=== PATIENT | female | born 1985 ===

== ENCOUNTER 2016-08-23 11:26 | Emergency (ER) | payer OTHER ==
[2016-08-23 11:27] VITALS: BMI 22.6
[2016-08-23 11:34] VITALS: BP 110/70; PULSE 87; RESP 15; TEMP 98.7; O2SAT 100
[2016-08-23 12:11] LABS: RBC URINE 2 /hpf (0-3); URINE BILIRUBIN NEGATIVE (NEGATIVE); URINE BLOOD 2+ (NEGATIVE); URINE COLOR Yellow (YELLOW); URINE GLUCOSE (UA) NORMAL (Normal); URINE KETONE TRACE mg/dL (NEGATIVE); URINE LEUKOCYTE ESTERASE NEG Leu/uL (Negative); URINE PROTEIN NEGATIVE (NEGATIVE); URINE UROBILINOGEN NORMAL mg/dL (0.2-1.0); WBC URINE 1 /hpf (0-5)
--- NOTE | 2016-08-23 12:46 | C.PDOC ---
History Of Present Illness 31 y/o female presents to ED requesting clarification of her results from hospital. Patient was seen at [facility] and was told she was however her Ultrasound showed no . Patient is confused and came to ED to get clarification on her diagnosis. She reports mild pain, and light spotting. Time Seen by Provider: 08/23/16 12:01 Chief Complaint (Nursing): Female Genitourinary History Per: Patient History/Exam Limitations: no limitations Onset/Duration Of Symptoms: Days Past Medical History Reviewed: Historical Data, Nursing Documentation, Vital Signs Vital Signs: Last Vital Signs Temp 98.7 F 08/23/16 11:33 Pulse 87 08/23/16 11:33 Resp 15 08/23/16 11:33 BP 110/70 08/23/16 11:33 Pulse Ox 100 08/23/16 18:54 - Medical History PMH: Asthma Family History: States: No Known Family Hx - Social History Hx Alcohol Use: No Hx Substance Use: No - Immunization History Hx Tetanus Toxoid Vaccination: No Hx Influenza Vaccination: No Hx Pneumococcal Vaccination: No Review Of Systems Constitutional: Negative for: Fever, Chills Gastrointestinal: Positive for: Abdominal Pain (mild). Negative for: Nausea, Vomiting, Diarrhea Genitourinary: Positive for: Vaginal Bleeding. Negative for: Dysuria, Frequency Neurological: Negative for: Weakness, Headache, Dizziness Physical Exam - Physical Exam Appears: Non-toxic, No Acute Distress Skin: Normal Color, Warm Head: Atraumatic, Normacephalic Eye(s): bilateral: Normal Inspection, EOMI Oral Mucosa: Moist Neck: Normal ROM Chest: Symmetrical Cardiovascular: Rhythm Regular Respiratory: Normal Breath Sounds, No Rales, No Rhonchi, No Wheezing Gastrointestinal/Abdominal: Soft, No Tenderness, No Guarding, No Rebound Neurological/Psych: Oriented x3, Normal Speech Gait: Steady ED Course And Treatment O2 Sat by Pulse Oximetry: 100 (Room air ) Pulse Ox Interpretation: Normal Medical Decision Making Medical Decision Making: Impression: Patient needs clarification of previous diagnosis Plan: Prior record reviewed patient was found to be . BHCG was 1571. US shows bilateral ovarian cyst and no IUP or gestational sac. I discussed and explained at length the results and what ovarian cysts were. I explain she needs to follow up for repeat BHCG and US to confirm . Progress: Patient verbalized understanding and was stable for discharge. Disposition Counseled Patient/Family Regarding: Diagnosis, Need For Followup - Disposition Referrals: [facility] [Outside] Disposition: HOME/ ROUTINE Disposition Time: 12:45 Condition: GOOD Additional Instructions: Mrs. Doyle, thank you for letting us take care of you today. Your provider was Carolina HENDRICKS and Dr Pelaez. You were seen today and all results were explained to you from prior visit and received copies of labs. Thank you for allowing the [facility] team to be part of your care today. Please Follow up in 24 hours for repeat quantitative B-Hcg and repeat transvaginal ultrasound in one week Please follow up with PMD and CUSTOMER SERVICE CLERK within the next few days. 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 - Scribe Statement The provider has reviewed the documentation as recorded by the Ruiibchelsie Duncan All medical record entries made by the Alexander were at my direction and personally dictated by me. I have reviewed the chart and agree that the record accurately reflects my personal performance of the history, physical exam, medical decision making, and the department course for this patient. I have also personally directed, reviewed, and agree with the discharge instructions and disposition.
== END 2016-08-23 12:47 | disposition home or self-care (01) ==
LOC: C.ER 11:26
DX: O20.0 Threatened abortion (principal); Z3A.00 Weeks of gestation of pregnancy not specified

== ENCOUNTER 2016-08-24 11:29 | Emergency (ER) | payer OTHER ==
[2016-08-24 11:41] VITALS: BMI 24.7
[2016-08-24 11:42] VITALS: RESP 18
--- NOTE | 2016-08-24 14:38 | US ---
HISTORY: pelvic pain/vaginal bleeding. LMP 08/10/2016 Beta HCG results: 2013. COMPARISON: None available. TECHNIQUE: Transvaginal only. Real -time technique with 2D, duplex and color Doppler FINDINGS: UTERUS: Measures 3.8 x 89.0 cm. Normal in size and appearance. No fibroid or other mass lesion seen. ENDOMETRIUM: Measures 9.1 mm in diameter. No ultrasound findings to suggest gestational sac, fluid, debris, mass or polyp or other pathologic process within the endometrium. CERVIX: Closed cervix 3.3 cm in length. RIGHT OVARY: Measures 3 x 3.9 cm. Complex cyst with debris and septa I 1.9 x 2.6 cm. Normal flow. LEFT OVARY: Measures 4.1 x 5.8 cm. No solid mass. Normal flow. Simple cyst 3.5 x 4.2 cm. FREE FLUID: Incompletely visualized fluid in the cul-de-sac. OTHER FINDINGS: None. IMPRESSION: No evidence of intrauterine gestation. Complex cyst right adnexa. Ectopic gestation is not excluded. Simple cyst left adnexa. Fluid in the cul-de-sac.
--- NOTE | 2016-08-24 15:40 | C.PDOC ---
History Of Present Illness 31-year-old female, presents to the emergency department for repeat Beta count. Patient seen in [place] ED two days ago, and had an ultrasound that did not show a live IUP. Patient notes that she wants to have a repeat count. Denies nausea/vomiting, fevers, chills, chest pain or shortness of breath or any other associated symptoms. No other complaints at this time. Chief Complaint (Nursing): Medical Clearance History Per: Patient History/Exam Limitations: no limitations Onset/Duration Of Symptoms: Days Current Symptoms Are (Timing): Still Present Past Medical History Reviewed: Historical Data, Nursing Documentation, Vital Signs Vital Signs: Last Vital Signs Temp 98 F 08/24/16 15:44 Pulse 77 08/24/16 15:44 Resp 18 08/24/16 15:44 BP 106/71 08/24/16 15:44 Pulse Ox 100 08/24/16 18:53 - Medical History PMH: Asthma Denies: Chronic Kidney Disease Family History: States: No Known Family Hx - Social History Hx Alcohol Use: No Hx Substance Use: No - Immunization History Hx Tetanus Toxoid Vaccination: No Hx Influenza Vaccination: No Hx Pneumococcal Vaccination: No Review Of Systems Except As Marked, All Systems Reviewed And Found Negative. Constitutional: Negative for: Fever, Chills Cardiovascular: Negative for: Chest Pain Gastrointestinal: Negative for: Vomiting Skin: Negative for: Rash Physical Exam - Physical Exam Appears: Non-toxic, No Acute Distress Skin: Warm, Dry, No Rash Head: Atraumatic, Normacephalic Eye(s): bilateral: Normal Inspection Nose: Normal Oral Mucosa: Moist Lips: Normal Appearing Neck: Normal ROM Respiratory: No Accessory Muscle Use Gastrointestinal/Abdominal: Soft, No Tenderness Extremity: Normal ROM Neurological/Psych: Oriented x3 ED Course And Treatment O2 Sat by Pulse Oximetry: 100 - CT Scan/US US TRANSVAG Other Rad Studies (CT/US): Read By Radiologist, Radiology Report Reviewed CT/US Interpretation: Accession No. : [id number]. Patient Name / ID : ADRIAN Bhatt / [id number]. Exam Date : 08/24/2016 13:17:54 ( Approved ). Study Comment : Sex / Age : F / 31Y. Creator : Azam Gutierrez MD. Dictator : Azam Gutierrez MD. Electric Meter Tester : [employer] Plant Maintenance Consultant : Azam Gutierrez MD. Approver2 : Report Date : 08/24/2016 14:36:56. My Comment : . HISTORY: pelvic pain/vaginal bleeding. LMP 08/10/2016. Beta HCG results: 2013.. COMPARISON: None available. TECHNIQUE: Transvaginal only. Real - time technique with 2D, duplex and color Doppler. FINDINGS: UTERUS: Measures 3.8 x 89.0 cm. Normal in size and appearance. No fibroid or other mass lesion seen. ENDOMETRIUM: Measures 9.1 mm in diameter. No ultrasound findings to suggest gestational sac, fluid, debris, mass or polyp or other pathologic process within the endometrium. CERVIX: Closed cervix 3.3 cm in length. RIGHT OVARY: Measures 3 x 3.9 cm. Complex cyst with debris and septa I 1.9 x 2.6 cm. Normal flow. LEFT OVARY: Measures 4.1 x 5.8 cm. No solid mass. Normal flow. Simple cyst 3.5 x 4.2 cm. FREE FLUID: Incompletely visualized fluid in the cul-de-sac. OTHER FINDINGS: None. IMPRESSION: No evidence of intrauterine gestation. Complex cyst right adnexa. Ectopic gestation is not excluded. Simple cyst left adnexa. Fluid in the cul-de-sac. Medical Decision Making Medical Decision Making: Prior Visits Notes anbd records from previous visits were reviewed. patient seen in [place] ED on 08/22; Patients US was negative for IUP and her HCG was 1571. Patient seen in ED yesterday, and she was told to f/u for repeat count and US in two days. Patient evaluated at bedside by Dr Rascon, states to have patient return for repeat beta count and US in two days, because ectopic cannot be ruled out at this time. Disposition - Disposition Referrals: Miguel Ángel Brothers [Staff Provider] - Disposition: HOME/ ROUTINE Disposition Time: 15:38 Condition: STABLE Additional Instructions: Follow up with OBGYN within 2-3 days. Return to ED in 2 days for Beta HCG and pelvic US. return to ED immediately if feel worse. Instructions: First Trimester Vaginal Bleed (ED) - Clinical Impression Clinical Impression: Vaginal bleeding in - Scribe Statement The provider has reviewed the documentation as recorded by the Ruiibchelsie Vaca All medical record entries made by the Ruiibchelsie were at my direction and personally dictated by me. I have reviewed the chart and agree that the record accurately reflects my personal performance of the history, physical exam, medical decision making, and the department course for this patient. I have also personally directed, reviewed, and agree with the discharge instructions and disposition.
[2016-08-24 15:46] VITALS: BP 106/71; PULSE 77; TEMP 98
--- NOTE | 2016-08-24 16:09 | CP.PCM.CON ---
History of Present Illness - History of Present Illness History of Present Illness: 31 yr lmp 08/10/16 came with c/o abdominal pain in the night, no pain now, some brownish discharge. DESIRED . pt was trying for it. pt has a h/o ectopic preg 2 yrs ago. pt went to [facility] on 08/22 and found out that she was preg. no pain now. did not took any pain meds. obhx 1 x ectopic preg, 1 x pmh denies med pnv all pcn psh left ectopic laprscopy soch smoking = [facility] [place] 1541 08/22 [facility] [place] [address]/[place]. sono no iup. right complex cyst left simple cyst sse brownish disc, no blood, cervix closed, ut anteverte, no pal masses. abd soft,non tender Past Patient History - Infectious Disease Hx of Infectious Diseases: None - Past Social History Smoking Status: Light Smoker < 10 Cigarettes Daily - CARDIAC Hx Cardiac Disorders: No - PULMONARY Hx Asthma: Yes - NEUROLOGICAL Hx Neurological Disorder: No - HEENT Hx HEENT Problems: No - RENAL Hx Chronic Kidney Disease: No - ENDOCRINE/METABOLIC Hx Endocrine Disorders: No - HEMATOLOGICAL/ONCOLOGICAL Hx Blood Disorders: No - INTEGUMENTARY Hx Dermatological Problems: No - MUSCULOSKELETAL/RHEUMATOLOGICAL Hx Musculoskeletal Disorders: No - GASTROINTESTINAL Hx Gastrointestinal Disorders: No - GENITOURINARY/GYNECOLOGICAL Hx Genitourinary Disorders: Yes Other/Comment: ECTOPIC - right side - PSYCHIATRIC Hx Substance Use: No - SURGICAL HISTORY Hx Surgeries: Yes Other/Comment: R/T ECTOPIC - ANESTHESIA Hx Anesthesia: No Hx Anesthesia Reactions: No Meds Allergies/Adverse Reactions: Allergies Allergy/AdvReac Type Severity Reaction Status Date / Time Penicillins Allergy RASH Verified 08/24/16 11:47 Physical Exam - Constitutional Appears: Well - Exam External exam: NORMAL EXTERNAL EXAM Speculum exam: NORMAL SPECULUM EXAM (small brownish disc) Bimanual exam: NORMAL BIMANUAL EXAM Results - Vital Signs Recent Vital Signs: Last Vital Signs Temp 98 F 08/24/16 15:44 Pulse 77 08/24/16 15:44 Resp 18 08/24/16 15:44 BP 106/71 08/24/16 15:44 Pulse Ox 99 08/24/16 15:44 - Labs Labs: Laboratory Results - last 24 hr 08/24/16 11:59 Beta HCG, Quant Assessment & Plan - Assessment and Plan (Free Text) Assessment: 31 yr at 5weeks r/o ectopic preg r/o early preg. desired preg. stable Plan: plan extensive discussion regarding expectant/medical/surgical management discussed. as it is very desired and pateint is stablee with no symtoms descion was made to repet bh cg and sonogram in 2days. if acute pain or vb come to er.ectopic precautions given no sex pelvic rest. pt understand that therr is a possibilty of ecopic and early preg caannot be ruled out at this time. she will follow up on friday and depending upon the findings decision will be made. all questions answered in detail. f/u on friday - Date & Time Date: 08/24/16 Time: 16:20
[2016-08-24 17:42] VITALS: O2SAT 100
== END 2016-08-24 15:46 | disposition home or self-care (01) ==
LOC: C.ER 11:29
DX: O46.91 Antepartum hemorrhage, unspecified, first trimester (principal); Z3A.01 Less than 8 weeks gestation of pregnancy

== ENCOUNTER 2016-08-26 12:03 | Emergency (ER) | payer OTHER ==
[2016-08-26 12:05] VITALS: BMI 24.7
--- NOTE | 2016-08-26 12:32 | C.PDOC ---
History Of Present Illness 31 y/o female. , (, hx ectopic a few yrs ago) seen in [place] ED on 08/22 for lower abdominal pain; right side more than left; pt had blood work done and transvaginal ultrasound done with no iup seen, beta-hcg of 1571. pt had vaginal bleeding after us which has since resolved. Pt told to return to ER for repeat labs and us. pt seen on 08/24 with beta-hcg now 2013, no iup seen on sonogram, complex right cyst noted. pt denies any vaginal bleeding, no abdominal pain since yesterday. Time Seen by Provider: 08/26/16 12:16 Chief Complaint (Nursing): Medical Clearance History Per: Patient History/Exam Limitations: no limitations Severity: Mild Pain Scale Rating Of: 0 Reports Recently: Seen In ED Recent travel outside of the [place]: No Past Medical History Reviewed: Historical Data, Nursing Documentation, Vital Signs Vital Signs: Last Vital Signs Temp 97.6 F 08/26/16 14:41 Pulse 79 08/26/16 16:34 Resp 18 08/26/16 16:34 BP 119/72 08/26/16 16:34 Pulse Ox 98 08/26/16 16:34 - Medical History PMH: Asthma Family History: States: Unknown Family Hx - Social History Hx Alcohol Use: No Hx Substance Use: No - Immunization History Hx Tetanus Toxoid Vaccination: Yes Hx Influenza Vaccination: No Hx Pneumococcal Vaccination: No Review Of Systems Constitutional: Negative for: Fever, Chills Gastrointestinal: Negative for: Vomiting, Abdominal Pain Genitourinary: Negative for: Dysuria, Vaginal Bleeding, Pelvic Pain Physical Exam - Physical Exam Appears: Non-toxic, No Acute Distress Skin: Warm, Dry, No Rash Head: Atraumatic, Normacephalic Chest: Symmetrical, No Tenderness Cardiovascular: Rhythm Regular, No Murmur Respiratory: Normal Breath Sounds, No Rales, No Rhonchi, No Wheezing Gastrointestinal/Abdominal: Soft, No Tenderness, No Guarding, No Rebound Extremity: No Tenderness, No Pedal Edema Neurological/Psych: Oriented x3, Normal Speech, Normal Cognition ED Course And Treatment - Laboratory Results Result Diagrams: 08/26/16 14:25 08/26/16 14:25 O2 Sat by Pulse Oximetry: 100 (room air) Pulse Ox Interpretation: Normal Progress Note: Plan: US transvaginal, repeat beta-HCG Disposition Counseled Patient/Family Regarding: Diagnosis, Need For Followup - Disposition Referrals: Miguel Ángel Brothers [Staff Provider] - Disposition: HOME/ ROUTINE Disposition Time: 16:25 Condition: STABLE Additional Instructions: Follow up with Dr Hauser on ; call tomorrow for an appointment, You will also need to be seen either by Dr Hauser or in ED on Sun for further blood work to heck the bhcg blood level. Return immediately to the ER for any abdominal pain (you many have some cramps), heavy vaginal bleeding, lightheadedness, fainting, or any other concerning symptoms. 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 - Scribe Statement The provider has reviewed the documentation as recorded by the Alexander Coelho All medical record entries made by the Alexander were at my direction and personally dictated by me. I have reviewed the chart and agree that the record accurately reflects my personal performance of the history, physical exam, medical decision making, and the department course for this patient. I have also personally directed, reviewed, and agree with the discharge instructions and disposition.
--- NOTE | 2016-08-26 13:42 | US ---
HISTORY: Rising beta HCG. Beta HCG results: Unknown COMPARISON: 08/24/2016 pelvic ultrasound TECHNIQUE: Transvaginal only. Real -time technique with 2D, duplex and color Doppler FINDINGS: UTERUS: Measures 4.1 x 9.7 cm. Normal in size and appearance. No fibroid or other mass lesion seen. ENDOMETRIUM: Measures 9.1 mm in diameter. No ultrasound findings to suggest gestational sac, fluid, debris, mass or polyp or other pathologic process within the endometrium. CERVIX: No cervical abnormality identified. RIGHT OVARY: Measures 3.4 x 4.3 cm. New complex mass in the right ovary 1.9 x 2.9 cm. This finding is suspicious for a ectopic gestation. This is separate and distinct from Complex cyst/ mass right ovary 2 x 2.6 cm. This is virtually identical compared to the prior study. Normal flow. LEFT OVARY: Measures 3.3 x 4.7 cm. No solid mass. Simple cyst 3.7 cm. See FREE FLUID: See Trace free fluid identified in the pelvis/cul de sac. OTHER FINDINGS: None. IMPRESSION: Solid mass right adnexa a with peripheral hypervascularity consistent with ectopic gestation. Additional findings unchanged compared to the prior study. No evidence of intrauterine gestation. Communication of critical results: I discussed the findings with RUTHIE Vega at the conclusion of this interpretation. Study completed at 13:18. Verbal results provided at 13:37.
[2016-08-26] MEDS ORDERED: Methotrexate 50 mg/2 ml Inj IM ONE ×3 (14:10→15:15)
[2016-08-26 14:35] LABS: BASO % 0.8 % (0.0-2.0); EOS % 0.6 % (0.0-4.0); LYMPH # 0.8 K/uL (1.0-4.3); MONO # 0.4 K/uL (0.0-0.8); WHITE BLOOD COUNT 4.1 K/uL (4.8-10.8)
[2016-08-26 14:41] LABS: CHLORIDE 102 mmol/L (98-107); POTASSIUM 4.5 mmol/L (3.6-5.2); SODIUM 137 mmol/L (132-148)
[2016-08-26 14:42] VITALS: RESP 18; TEMP 97.6
[2016-08-26 14:43] LABS: BILIRUBIN,TOTAL 0.4 mg/dL (0.2-1.3); GFR AFRICAN-AMERICAN > 60
[2016-08-26 14:44] LABS: ALB/GLOB RATIO 1.4 (1.0-2.1); ALKALINE PHOSPHATASE 48 U/L (38-126); ALT/SGPT 22 U/L (9-52); AST/SGOT 16 U/L (14-36); BLOOD UREA NITROGEN 8 mg/dL (7-17); CARBON DIOXIDE 27 mmol/L (22-30); GLUCOSE,RANDOM 92 mg/dL (65-105); TOTAL PROTEIN 7.4 g/dL (6.3-8.3)
[2016-08-26 14:50] LABS: LYMPH % 19.9 % (20.0-40.0); MEAN CELL VOLUME 95.3 fL (81.0-99.0); MEAN CORPUSCULAR HEMOGLOBIN 32.3 pg (27.0-31.0); MEAN CORPUSCULAR HGB CONC 33.9 g/dL (33.0-37.0); MEAN PLATELET VOLUME 9.6 fL (7.2-11.7); MONO % 10.2 % (0.0-10.0); RED CELL DISTRIBUTION WIDTH 12.2 % (11.5-14.5)
[2016-08-26 16:35] VITALS: BP 119/72; PULSE 79
--- NOTE | 2016-08-26 17:30 | CP.PCM.CON ---
History of Present Illness - History of Present Illness History of Present Illness: 31 y/o female with hx of ectopic , presents to ed for follow up cg and ultrasound.Patient states that she has no pain today nor has beleding. [facility] [place] 08/24/20162013 [facility] [place] today [address]1 ultrasound today shows right adnexal ectopic Review of Systems - Review of Systems All systems: reviewed and no additional remarkable complaints except - Gastrointestinal Gastrointestinal: absent: Abdominal Pain, Nausea, Vomiting - Reproductive: Female Reproductive:Female: absent: Vaginal Discharge, Vaginal Dryness, Vaginal Odor Past Patient History - Infectious Disease Hx of Infectious Diseases: None - Past Social History Smoking Status: Light Smoker < 10 Cigarettes Daily - CARDIAC Hx Cardiac Disorders: No - PULMONARY Hx Asthma: Yes - NEUROLOGICAL Hx Neurological Disorder: No - HEENT Hx HEENT Problems: No - RENAL Hx Chronic Kidney Disease: No - ENDOCRINE/METABOLIC Hx Endocrine Disorders: No - HEMATOLOGICAL/ONCOLOGICAL Hx Blood Disorders: No - INTEGUMENTARY Hx Dermatological Problems: No - MUSCULOSKELETAL/RHEUMATOLOGICAL Hx Musculoskeletal Disorders: No - GASTROINTESTINAL Hx Gastrointestinal Disorders: No - GENITOURINARY/GYNECOLOGICAL Hx Genitourinary Disorders: Yes Other/Comment: ECTOPIC - right side - PSYCHIATRIC Hx Substance Use: No - SURGICAL HISTORY Hx Surgeries: Yes Other/Comment: R/T ECTOPIC - ANESTHESIA Hx Anesthesia: No Hx Anesthesia Reactions: No Meds Allergies/Adverse Reactions: Allergies Allergy/AdvReac Type Severity Reaction Status Date / Time Penicillins Allergy RASH Verified 08/26/16 12:10 Physical Exam - Constitutional Appears: Well, No Acute Distress - Respiratory Exam Respiratory Exam: Clear to Auscultation Bilateral, NORMAL BREATHING PATTERN - Cardiovascular Exam Cardiovascular Exam: REGULAR RHYTHM - GI/Abdominal Exam GI & Abdominal Exam: Normal Bowel Sounds, Soft. absent: Guarding, Rebound, Rigid, Tenderness - Extremities Exam Extremities exam: Negative for: calf tenderness - Back Exam Back exam: absent: CVA tenderness (L), CVA tenderness (R) - Neurological Exam Neurological exam: Alert, Oriented x3 - Psychiatric Exam Psychiatric exam: Normal Affect, Normal Mood - Skin Skin Exam: Normal Color Results - Vital Signs Recent Vital Signs: Last Vital Signs Temp 97.6 F 08/26/16 14:41 Pulse 79 08/26/16 16:34 Resp 18 08/26/16 16:34 BP 119/72 08/26/16 16:34 Pulse Ox 98 08/26/16 16:34 - Labs Result Diagrams: 08/26/16 14:25 08/26/16 14:25 Labs: Laboratory Results - last 24 hr 08/26/16 08/26/16 08/26/16 13:08 14:25 14:25 WBC 4.1 L RBC 3.77 L Hgb 12.2 Hct 36.0 MCV 95.3 MCH 32.3 H MCHC 33.9 RDW 12.2 Plt Count 210 MPV 9.6 Neut % (Auto) 68.5 Lymph % (Auto) 19.9 L [place] % (Auto) 10.2 H Eos % (Auto) 0.6 Baso % (Auto) 0.8 Neut # 2.8 Lymph # 0.8 L [place] # 0.4 Eos # 0.0 Baso # 0.0 Sodium 137 Potassium 4.5 Chloride 102 Carbon Dioxide 27 Anion Gap 13 BUN 8 Creatinine 0.6 L Est GFR ( Amer) > 60 Est GFR (Non-Af Amer) > 60 Random Glucose 92 Calcium 9.0 Total Bilirubin 0.4 AST 16 ALT 22 Alkaline Phosphatase 48 Total Protein 7.4 Albumin 4.3 Globulin 3.1 Albumin/Globulin Ratio 1.4 Beta HCG, Quant 3661.90 Assessment & Plan (1) Ectopic without intrauterine Assessment and Plan: Patient with right adnexal ectopic .hx of ectopic in past discussed management options with patient-medical versus surgical risks and benefits of each discussed.patient chooses to have methotrexate give methotrexatae 50mg/m2 of bsa. Avoid folic acid.pelvic rest.patient given rupture precautions.Repeat bhcg on and friday follow up with dr kruger in am Status: Acute
[2016-08-28 12:27] VITALS: O2SAT 100
== END 2016-08-26 16:35 | disposition home or self-care (01) ==
LOC: C.ER 12:03
DX: O00.90 Unspecified ectopic pregnancy without intrauterine pregnancy (principal)
CPT/HCPCS: 36415; 76830; 80053; 84702; 85025; 96372; 99283; J9250

== ENCOUNTER 2016-09-07 23:23 | Observation (INO) | payer OTHER ==
[2016-09-07 23:23] VITALS: BMI 24.7
--- NOTE | 2016-09-08 00:08 | C.PDOC ---
History Of Present Illness <Thierry Walker - Last Filed: 09/08/16 00:34> <Noe Munroe - Last Filed: 09/08/16 02:50> 31 y/o F c PMHx ectopic years ago, diagnosed with ectopic approximately 12 days ago s/p methotrexate administration p/w lower pelvic pain x weeks. She states the pain she is presenting for today is the same pain she had when diagnosed with the ectopic weeks ago. She has been taking acetaminophen for the pain but reports that it is severe and she "need to figure out what's going on." She also reports that vaginal bleeding began today while she was in the ER. She denies fever, vomiting, diarrhea, dysuria. (Thierry Walker) <DeniseThierry Cox - Last Filed: 09/08/16 00:34> <Noe Munroe - Last Filed: 09/08/16 02:50> Time Seen by Provider: 09/07/16 23:55 Chief Complaint (Nursing): Abdominal Pain Past Medical History - Medical History PMH: Asthma Denies: Chronic Kidney Disease Family History: States: Unknown Family Hx - Social History Hx Alcohol Use: No Hx Substance Use: No - Immunization History Hx Tetanus Toxoid Vaccination: Yes Hx Influenza Vaccination: No Hx Pneumococcal Vaccination: No <DeniseThierry - Last Filed: 09/08/16 00:34> Review Of Systems Except As Marked, All Systems Reviewed And Found Negative. Constitutional: Negative for: Fever Respiratory: Negative for: Cough <DensieThierry Cox - Last Filed: 09/08/16 00:34> Physical Exam <DeniseThierry Cox - Last Filed: 09/08/16 00:34> <Noe Munroe - Last Filed: 09/08/16 02:50> - Physical Exam Additional Physical Exam Comments: Constitutional: Crying Head: Normocephalic. Atraumatic. Eyes: PERRL. ENT: Moist mucous membranes. Neck: Supple. Cardiovascular: Regular rate. Radial pulse 2+ bilaterally. Chest: No tenderness. Respiratory: Clear to auscultation bilaterally. GI: Lower abdominal tenderness. Back: No CVA tenderness. Musculoskeletal: No tenderness or swelling of extremities. Skin: No rash. Neurologic: Alert, no focal deficit. (Thierry Walker) ED Course And Treatment - Laboratory Results Result Diagrams: 09/08/16 00:30 09/08/16 00:01 O2 Sat by Pulse Oximetry: 99 <Thierry Walker - Last Filed: 09/08/16 00:34> - Laboratory Results Result Diagrams: 09/08/16 00:30 09/08/16 00:01 <Noe Munroe - Last Filed: 09/08/16 02:50> Medical Decision Making <Thierry Walker - Last Filed: 09/08/16 00:34> <Noe Munroe - Last Filed: 09/08/16 02:50> Medical Decision Making: Normal vital signs. Will repeat beta quant and check labs. Morphine for pain. Repeat transvaginal US. Dr. Brothers agrees with plan and will consult with him after results return. CBC normal, chemistry normal. Pending Beta quant, urine, and US. Will sign out to ER night team at end of shift. (Thierry Walker) Disposition <Thierry Walker - Last Filed: 09/08/16 00:34> - Disposition Disposition Time: 02:50 <Noe Munroe - Last Filed: 09/08/16 02:50> - Disposition Disposition: HOSPITALIZED Condition: GOOD - Clinical Impression Clinical Impression: Ectopic without intrauterine Addendum <Thierry Walker - Last Filed: 09/08/16 00:34> <Noe Munroe - Last Filed: 09/08/16 02:50> Addendum: Hx and Pe reviewed Pending us and quant Quant down from 4628 to 1919 US enlarging rt adnexal mass min free fluid Pt return for US with increased pain and diaphoresis, VS unchanged Abd with mod diffuse tenderness Case discussed with dr Brothers, who evaluated pt in the ED and will take her to the OR Plan to OR (Noe Munroe)
[2016-09-08 00:23] LABS: CHLORIDE 102 mmol/L (98-107); POTASSIUM 3.7 mmol/L (3.6-5.2); SODIUM 135 mmol/L (132-148)
[2016-09-08 00:25] LABS: ALB/GLOB RATIO 1.9 (1.0-2.1); AST/SGOT 22 U/L (14-36); BILIRUBIN,TOTAL 0.4 mg/dL (0.2-1.3); CARBON DIOXIDE 21 mmol/L (22-30); GFR AFRICAN-AMERICAN > 60; TOTAL PROTEIN 7.3 g/dL (6.3-8.3)
[2016-09-08 00:26] LABS: ALKALINE PHOSPHATASE 45 U/L (38-126); ALT/SGPT 21 U/L (9-52); BLOOD UREA NITROGEN 12 mg/dL (7-17); CALCIUM 8.7 mg/dl (8.6-10.4); GLUCOSE,RANDOM 126 mg/dL (65-105)
[2016-09-08 00:26] LABS: BASO % 0.6 % (0.0-2.0); EOS # 0.2 K/uL (0.0-0.7); EOS % 2.6 % (0.0-4.0); HEMATOCRIT 33.9 % (34.0-47.0); LYMPH # 1.5 K/uL (1.0-4.3); LYMPH % 25.5 % (20.0-40.0); MEAN CELL VOLUME 96.7 fL (81.0-99.0); MEAN CORPUSCULAR HEMOGLOBIN 32.2 pg (27.0-31.0); MEAN CORPUSCULAR HGB CONC 33.3 g/dL (33.0-37.0); MEAN PLATELET VOLUME 9.5 fL (7.2-11.7); MONO # 0.4 K/uL (0.0-0.8); MONO % 6.5 % (0.0-10.0); NRBC % 0.2 % (0.0-2.0); RED CELL DISTRIBUTION WIDTH 12.5 % (11.5-14.5); WHITE BLOOD COUNT 5.8 K/uL (4.8-10.8)
[2016-09-08] MEDS ORDERED: Morphine 4 MG/ML VIAL ONE ×3 (00:32→07:28)
--- NOTE | 2016-09-08 03:03 | CP.PCM.HP ---
History of Present Illness - History of Present Illness History of Present Illness: 31yo female who is s/p methotrexate injection for a suspected ectopic gestation returns to the ER today complaining of intermittent but worsoning pain which has been developing since the injection of methotrexate was given. She had followed up with beta hcg levels which went up on the 4th day to over 4000 and is currently trended down to 1900. She reports the pain become more intense after a transvaginal sonogram today. Abdominal exams reveals rebound tenderness. Management options were d/w the patient including diagnostic laparascopy with possible salpingectomy in the event of tubal involvement were discussed. After having her questions answered, Pt elects to proceed with surgical management. The procedure as well as the risks and benefits including injury to vital organs and infertility were discussed. Pt had a previous ectopic where one of her tubes was removed. Consents for procedure were obtained. This is an Emergency procedure. Pt ate at 11 pm yesterday. Present on Admission - Present on Admission Any Indicators Present on Admission: No Review of Systems - Gastrointestinal Gastrointestinal: Abdominal Pain - Reproductive: Female Reproductive:Female: Currently Menstual, Light Menses - Menstruation Menstruation: Currently Menstual, Light Menses, Dysmenorrhea Past Patient History - Infectious Disease Hx of Infectious Diseases: None - Past Social History Smoking Status: Light Smoker < 10 Cigarettes Daily - CARDIAC Hx Cardiac Disorders: No - PULMONARY Hx Asthma: Yes - NEUROLOGICAL Hx Neurological Disorder: No - HEENT Hx HEENT Problems: No - RENAL Hx Chronic Kidney Disease: No - ENDOCRINE/METABOLIC Hx Endocrine Disorders: No - HEMATOLOGICAL/ONCOLOGICAL Hx Blood Disorders: No - INTEGUMENTARY Hx Dermatological Problems: No - MUSCULOSKELETAL/RHEUMATOLOGICAL Hx Musculoskeletal Disorders: No - GASTROINTESTINAL Hx Gastrointestinal Disorders: No - GENITOURINARY/GYNECOLOGICAL Hx Genitourinary Disorders: Yes Other/Comment: ECTOPIC - right side - PSYCHIATRIC Hx Substance Use: No - SURGICAL HISTORY Hx Surgeries: Yes Other/Comment: R/T ECTOPIC - ANESTHESIA Hx Anesthesia: No Hx Anesthesia Reactions: No Meds Allergies/Adverse Reactions: Allergies Allergy/AdvReac Type Severity Reaction Status Date / Time Penicillins Allergy RASH Verified 08/26/16 12:10 Physical Exam - Constitutional Appears: Non-toxic - Respiratory Exam Respiratory Exam: Clear to Auscultation Bilateral, NORMAL BREATHING PATTERN - Cardiovascular Exam Cardiovascular Exam: REGULAR RHYTHM, RRR - GI/Abdominal Exam GI & Abdominal Exam: Guarding, Normal Bowel Sounds, Rebound - Exam Bimanual exam: Adenexal Mass, Cervical Motion Tendernes - Neurological Exam Neurological exam: Oriented x3 Results - Vital Signs Recent Vital Signs: Last Vital Signs Temp 98.3 F 09/07/16 23:34 Pulse 78 09/08/16 02:42 Resp 20 09/08/16 02:42 BP 101/63 09/08/16 02:42 Pulse Ox 100 09/08/16 02:42 - Labs Result Diagrams: 09/08/16 00:30 09/08/16 00:01 Labs: Laboratory Results - last 24 hr 09/08/16 09/08/16 09/08/16 00:01 00:30 01:44 WBC 5.8 RBC 3.50 L Hgb 11.3 Hct 33.9 L MCV 96.7 MCH 32.2 H MCHC 33.3 RDW 12.5 Plt Count 236 MPV 9.5 Neut % (Auto) 64.8 Lymph % (Auto) 25.5 [place] % (Auto) 6.5 Eos % (Auto) 2.6 Baso % (Auto) 0.6 Neut # 3.7 Lymph # 1.5 [place] # 0.4 Eos # 0.2 Baso # 0.0 Sodium 135 Potassium 3.7 Chloride 102 Carbon Dioxide 21 L Anion Gap 16 BUN 12 Creatinine 0.6 L Est GFR ( Amer) > 60 Est GFR (Non-Af Amer) > 60 POC Glucose (mg/dL) 122 H Random Glucose 126 H Calcium 8.7 Total Bilirubin 0.4 AST 22 ALT 21 Alkaline Phosphatase 45 Total Protein 7.3 Albumin 4.8 Globulin 2.6 Albumin/Globulin Ratio 1.9 Beta HCG, Quant 1919.10 Assessment & Plan (1) Abdominal pain Status: Acute (2) Ectopic without intrauterine Status: Acute - Assessment and Plan (Free Text) 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 - Date & Time Date: 09/08/16 Time: 03:07
[2016-09-08 03:14] LABS: RBC URINE 3540 /hpf (0-3); URINE BILIRUBIN NEGATIVE (NEGATIVE); URINE BLOOD 3+ (NEGATIVE); URINE COLOR Amber (YELLOW); URINE GLUCOSE (UA) NORMAL (Normal); URINE KETONE TRACE mg/dL (NEGATIVE); URINE LEUKOCYTE ESTERASE NEG Leu/uL (Negative); URINE PROTEIN 2+ mg/dL (NEGATIVE); URINE UROBILINOGEN NORMAL mg/dL (0.2-1.0)
[2016-09-08] MEDS ORDERED: Albuterol HFA 90 mcg/actuation (8 g) ONE (05:42)
[2016-09-08] MEDS ORDERED: Rocuronium 10 mg/ml (5 ml) ONE (05:48)
[2016-09-08] MEDS ORDERED: Propofol 10 mg/ml Inj (20 ML) ONE (05:48)
[2016-09-08] MEDS ORDERED: Succinylcholine Chloride 20 mg/ml Syr (5 ml) IV ONE (05:48)
[2016-09-08] MEDS ORDERED: Midazolam 2 MG/2 ML VIAL ONE (05:48)
[2016-09-08] MEDS ORDERED: Sodium Chloride 0.9% 1,000 ML IV ONE (06:05)
[2016-09-08] MEDS ORDERED: Bupivacaine HCl 0.5% PF (10 ml) Inj ONE (06:37)
[2016-09-08] MEDS ORDERED: Lactated Ringer's 1,000 ML IV ONE ×2 (07:00→09:00)
[2016-09-08] MEDS ORDERED: Neostigmine Methylsulfate 3mg/3ml Syringe IV ONE (07:15)
[2016-09-08] MEDS: HYDROmorphone 0.5 mg/0.5 ml ISec IVP PRN ×3 (07:50→08:20)
--- NOTE | 2016-09-08 07:53 | PCM.SURG1 ---
Surgeon's Initial Post Op Note - Surgeon's Notes Surgeon: Dr Brothers Behavioral Health Technician: Dr Ramos Type of Anesthesia: General Endo Anesthesia Administered By: Dr Rei Leary Pre-Operative Diagnosis: Acute Abdominal Pain due to ruptured Ectopic gestation Operative Findings: Normal sized uterus with ruptured Right isthmal ectopic gestation extending to the ampullary region. Left fallopian tube partially absent with only the fimbrial portion visible. [place] ovaries were present and appeared normal. Bowel adhesions to the ectopic gestation. Adhesiolysis performed. IVFluid intake- 1700mls. EBL- 100mls. Urine output- 100mls Post-Operative Diagnosis: Same as preop diagnosis. Pelvic adhesions Operation Performed: Laparascopy with release of adhesions and Right total salpingection. Suctioning of hemoperitoneum. Specimen/Specimens Removed: Excised ectopic gestation Estimated Blood Loss: EBL {In ML}: 100 Blood Products Given: N/A Post-Op Condition: Good Date of Surgery/Procedure: 09/08/16 Time of Surgery/Procedure: 08:01
[2016-09-08] MEDS ORDERED: Oxycodone/Acetaminophen 5/325 mg Tab PO PRN ×2 (09:29→09:32)
[2016-09-08 09:49] VITALS: RESP 20
[2016-09-08 10:04] VITALS: O2SAT 100
[2016-09-08] MEDS: Simethicone 80 mg Chewtab PO SCH ×2 (10:29→17:35)
--- NOTE | 2016-09-08 13:44 | US ---
Pelvic ultrasound History: Pelvic pain. Ectopic . Status post methotrexate. Comparison: Ultrasound dated 08/26/2016 Technique: Real-time sonography was performed through the pelvis utilizing transvaginal technique with image documentation. Findings: Uterus: 10.2 x 4.6 x 5.4 centimeters. Endometrial stripe measures 1.0 centimeters. No myometrial mass. Right ovary: Suggestion of a solid mass again noted near the right ovary at the right adnexa which may measure approximately 4.1 x 3.8 centimeters. This would be enlarged from approximately 1.9 centimeters on the prior study. This is concerning for a possible persistent and enlarging ectopic . Clinical correlation. Right ovary measures 4.0 x 3.3 x 3.3 centimeters. Right ovary demonstrates normal Doppler waveforms. Left ovary measures 4.6 x 4.2 x 3.7 centimeters. Hypoechoic left ovarian cyst measuring 3.2 x 3.0 x 3.1 centimeters. Normal flow. Moderate free fluid in the pelvic cul-de-sac. Impression: Suggestion of a solid mass again seen near the right ovary at the right adnexa which appears to now measure up to 4.1 x 3.8 centimeters. This would be enlarged since the prior study from approximately 1.9 centimeters on the prior study. This is concerning for a possible persistent enlarging ectopic gestation. Clinical correlation. Moderate free fluid in the pelvic cul-de-sac. 3.2 centimeter left ovarian cyst. These findings were preliminarily reported at 2:12 a.m. on 09/08/[address] Beto Rosales from [employer]. These findings were reported to Dr. Munroe at 2:[address] Beto Rosales.
[2016-09-08 15:36] VITALS: BP 115/68; PULSE 98; TEMP 97.1
--- NOTE | 2016-09-10 08:54 | OP ---
PROCEDURE DATE: 09/08/2016 PREOPERATIVE DIAGNOSIS: Acute abdominal pain due to a ruptured ectopic gestation. POSTOPERATIVE DIAGNOSIS: Acute abdominal pain due to ruptured ectopic, right ectopic gestation. PROCEDURE DONE: Laparoscopy with right partial salpingectomy performed on 09/07/2016. SURGEON: Dr. Brothers CLOTH WIRE WEAVER: . Assistance to this procedure was needed for exposure of tissues and help in t he conduct of the entire surgery. The insurance account assistant was present through the surgery throughout its entir e length. TYPE OF ANESTHESIA: General endotracheal. Anesthesia was administered by Dr. Rei Leary. FINDINGS: A normal sized uterus with a ruptured right ectopic gestation, but extending to the ampullary region. There was leakage of blood from the ampullary and the fimbrial end into the pelvis with collection of about 100 mL of clots. The left fallopian tube was absent with only the fimbrial portion visible. Both ovaries were present and appeared normal. There were some bowel adhesions to the ectopic gestation on the right side. Adhesiolysis was performed before excision of the ectopic gestation. INTRAVENOUS FLUID INTAKE: 1700 mL. ESTIMATED BLOOD LOSS: About 100 mL. URINE OUTPUT: About 100 mL of clear urine at the end of the procedure. COMPLICATIONS: There were none. SAMPLES SENT FOR PATHOLOGY: Included the excised ectopic gestation. DESCRIPTION OF PROCEDURE: After obtaining informed consent, the patient was sent to the OR with IV r unning and Desai catheter in place. The patient was placed in a supine position on the OR table and after adequate general anesthesia, was put in a dorsal lithotomy position. The patient was then prep ped and draped in a sterile fashion. After insertion of a urinary catheter, the posterior wall of th e vagina was depressed using a weighted speculum and the anterior wall was elevated with an L-shaped retractor to expose the cervix. The anterior lip of the cervix was held with a single tooth tenaculu m and the uterus was sounded to about 7-8 cm. The cervical canal was dilated with Hegar's dilator, a fter which a D and C with a curettage was performed. The tissue collected from the endometrial cavit y was sent for pathological evaluation. The HUMI uterine manipulator was inserted into the uterine c avity at this point and secured in place with the air balloon attached. The tenaculum and the weight ed speculum were then taken out and attention was directed to the anterior abdominal wall. A 5 mm in cision was made into the central portion of the umbilicus and the edges of this incision was held and elevated with towel clips. A 5 mm trocar and sleeve was inserted into the abdomen through this umbi lical incision and after assuring correct placement with a laparoscope, this was connected to the car bon dioxide gas. The abdominal cavity was filled to a pressure of about 15 mmHg. Two additional por ts, a 5 mm port in the left lower quadrant and a 10 mm on the right lower quadrant, were at this poin t done with laparoscopic guidance. The uterus was elevated using the uterine manipulator and the rig ht ampullary gestation was identified and held with graspers. Using a 5 mm LigaSure device, the inci laly was carefully excised until it was fully taken off. The excised ectopic gestation was collected and taken out of the abdominal cavity through an EndoCatch bag. Once the procedure was completed, s uctioning of the hemoperitoneum was performed. Irrigation of the pelvis was performed at this time u ntil hemostasis was assured. Once the procedure was completed and all hemostasis assured, the laparo scope and the graspers and the instruments were taken from the laparoscopic ports and the carbon diox mika gas disconnected. The carbon dioxide gas in the abdomen was expelled through the ports. The can nulas, the trocars and sleeves were then taken out and the skin incisions were repaired using Biosyn. All counts of instruments, laparotomy pads, and needles used were correct x 3. The patient was rep laced in the supine position and was sent to the recovery room awake and in stable condition. Miguel Ángel Brothers MD cc: [id number] TT: 09/09/2016 09:55:18 en
== END 2016-09-08 18:16 | disposition home or self-care (01) ==
LOC: C.ER 23:23 → C.4M 09-08 02:43
PROVIDERS: ADMIT Obstetrics & Gynecology; ATTEND Obstetrics & Gynecology
DX: O00.10 Tubal pregnancy without intrauterine pregnancy (principal)
CPT/HCPCS: 59151; 76830; 80053; 81001; 82948; 84702; 85025; 86850; 86900; 86920; 88302; 88305; 96374; 99285; G0378; J1100; J1170; J2001; J2250; J2270; J2405; J2704; J2710; J3010; J7040; J7120